=== PATIENT | male | born 1985 | race Caucasian/White ===

== ENCOUNTER 2018-09-12 14:25 | Emergency (ER) | payer OTHER, BC ==
[2018-09-12] MEDS ORDERED: Ketorolac 60 MG/2 ML SDV IM ONE (15:07)
--- NOTE | 2018-09-12 15:13 | EDM.PDOC ---
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 Since that time he has had issues with position changing and twisting. He has no pain radiating to his legs no muscle weakness or lower extremity weakness and no gait instability. He has no sensory changes numbness or tingling in his legs and had no direct trauma or midline back pain. He has no bowel or bladder disturbances and no flank pain. He did not take anything for the pain to coming here. He has seen a chiropractor in the past but has not scheduled any appointments for follow-up yet. The patient does describe the pain as midline and it does not localize right or left and there is no pain in the buttocks The patient has no systemic complaints and had no issues prior to these events Review of systems: As per history of present illness and below otherwise all systems reviewed and negative. Past medical history: As per history of present illness and as reviewed below otherwise noncontributory. Surgical history: As per history of present illness and as reviewed below otherwise noncontributory. Social history: No reported history of drug or alcohol abuse. Family history: As per history of present illness and as reviewed below otherwise noncontributory. Physical exam: General: Well-developed well-nourished man who is nontoxic and does look uncomfortable with any movement. Vital signs are noted by me HEENT: Atraumatic, normocephalic, negative for conjunctival pallor or scleral icterus, mucous membranes moist, throat clear, neck supple, nontender, trachea midline. Lungs: Clear to auscultation, breath sounds equal bilaterally, chest nontender. Heart: S1S2, regula rate and rhythm no overt murmurs Abdomen: Soft, nondistended, nontender. Negative for masses or hepatosplenomegaly. Negative for costovertebral tenderness. Pelvis: Stable nontender. Genitourinary: Deferred. Rectal: Deferred. Extremities: Atraumatic, negative for cords or calf pain. Neurovascular unremarkable. Full range of motion without defects or deficits Neuro: Awake, alert, oriented. Cranial nerves II through XII unremarkable. Cerebellum unremarkable. Motor and sensory unremarkable throughout. Exam nonfocal. Patella reflexes are +2 over 4 bilaterally and dorsi and plantar flexion are intact 5/5 inclusive of the great toe. Inversion and eversion of the feet is intact Back: There are no midline step-offs tenderness defects of the thoracic or lumbar spine no posterior rib or posterior pelvis tenderness and on palpation of the paraspinal musculature I am unable to reproduce the pain Diagnostics: Patient declines imaging at this time Therapeutics: Toradol Norflex Impression: Lumbar back pain strain/quadratus lumborum muscle strain Definitive disposition and diagnosis as appropriate pending reevaluation and review of above. lower back Pain Score (Numeric/FACES): 7 - Related Data Allergies Allergy/AdvReac Type Severity Reaction Status Date / Time No Known Allergies Allergy Verified 09/12/18 14:47 Home Meds: Home Meds . [No Known Home Meds] 09/12/18 [History] Past Medical History - Past Health History Medical/Surgical History: Denies Medical/Surgical History Social & Family History - Family History Family Medical History: Noncontributory - Tobacco Use Smoking Status *Q: Never Smoker - Caffeine Use Caffeine Use: Reports: Coffee, Soda - Recreational Drug Use Recreational Drug Use: No ED ROS GENERAL - Review of Systems Review Of Systems: ROS reveals no pertinent complaints other than HPI. ED EXAM, GENERAL - Physical Exam Exam: See Below (See dictation) Course - Vital Signs Last Recorded V/S: Last Vital Signs Temp 37.3 C 09/12/18 14:45 Pulse 80 09/12/18 14:45 Resp 16 09/12/18 14:45 BP 131/78 09/12/18 14:45 Pulse Ox 96 09/12/18 14:45 - Orders/Labs/Meds Orders: Active Orders 24 hr Category Date Time Status Ketorolac [Toradol] Med 09/12/18 15:07 Once 60 mg IM ONETIME ONE Orphenadrine [Norflex] Med 09/12/18 15:07 Once 60 mg IM ONETIME ONE Medication Orders Ketorolac Tromethamine (Toradol) 60 mg IM ONETIME ONE Stop: 09/12/18 15:08 Orphenadrine Citrate (Norflex) 60 mg IM ONETIME ONE Stop: 09/12/18 15:08 Meds: Medications Generic Name Dose Route Start Last Admin Trade Name Brenton PRN Reason Stop Dose Admin Ketorolac Tromethamine 60 mg 09/12/18 15:07 Toradol IM 09/12/18 15:08 ONETIME ONE Orphenadrine Citrate 60 mg 09/12/18 15:07 Norflex IM 09/12/18 15:08 ONETIME ONE Departure - Departure Time of Disposition: 15:11 Disposition: Home, Self-Care 01 Condition: Good Clinical Impression: Low back strain Qualifiers: Encounter type: initial encounter Qualified Code(s): S39.012A - Strain of muscle, fascia and tendon of lower back, initial encounter - Discharge Information Referrals: PCP,None [Primary Care Provider] - Additional Instructions: The following information is given to patients seen in the emergency department who are being discharged to home. This information is to outline your options for follow-up care. We provide all patients seen in our emergency department with a follow-up referral. The need for follow-up, as well as the timing and circumstances, are variable depending upon the specifics of your emergency department visit. If you don't have a primary care physician on staff, we will provide you with a referral. We always advise you to contact your personal physician following an emergency department visit to inform them of the circumstance of the visit and for follow-up with them and/or the need for any referrals to a consulting specialist. The emergency department will also refer you to a specialist when appropriate. This referral assures that you have the opportunity for followup care with a specialist. All of these measure are taken in an effort to provide you with optimal care, which includes your followup. Under all circumstances we always encourage you to contact your private physician who remains a resource for coordinating your care. When calling for followup care, please make the office aware that this follow-up is from your recent emergency room visit. If for any reason you are refused follow-up, please contact the [facility] emergency department at and ask to speak to the emergency department charge nurse. [facility] Primary care- Internal Medicine and Family [facility] [address] [place] [id number] Try to do all movements and position changes much more slowly as we discussed and try to avoid twisting-like activities. Apply heat or ice to area and use [id number] Tylenol as needed. Avoid [id number] ibuprofen as you have been given diclofenac and also take the Norflex only when you're home as it may cause drowsiness. These call and schedule a follow-up appointment in the clinic with one of our providers or with your provider and return to ER as needed and as discussed please remember that this pain will slowly improve over the next 7-14 days - My Orders Last 24 Hours: My Active Orders 09/12/18 15:07 Ketorolac [Toradol] 60 mg IM ONETIME ONE Orphenadrine [Norflex] 60 mg IM ONETIME ONE - Assessment/Plan Last 24 Hours: My Active Orders 09/12/18 15:07 Ketorolac [Toradol] 60 mg IM ONETIME ONE Orphenadrine [Norflex] 60 mg IM ONETIME ONE
== END 2018-09-12 15:39 | disposition home or self-care (01) ==
LOC: MW.ED 14:25
DX: S39.012A Strain of muscle, fascia and tendon of lower back, initial encounter (principal); X50.0XXA Overexertion from strenuous movement or load, initial encounter
CPT/HCPCS: 96372; 99283; J1885; J2360

== ENCOUNTER 2023-03-07 16:26 | Emergency (ER) | payer BC ==
[2023-03-07] MEDS ORDERED: Lidocaine 1% 5 ML VIAL INJECT ONE (16:54)
[2023-03-07] MEDS ORDERED: Diphtheria,Pertussis(Acell),Tetanus Vaccine 0.5 ML Syringe IM ONE (16:54)
== END 2023-03-07 18:16 | disposition home or self-care (01) ==
LOC: MW.ED 16:26
DX: S61.210A Laceration without foreign body of right index finger without damage to nail, initial encounter (principal); Z23 Encounter for immunization; W26.8XXA Contact with other sharp object(s), not elsewhere classified, initial encounter
CPT/HCPCS: 12001; 90471; 90715; 99282-25; 99283; J3490